=== PATIENT | male | born 1965 | race Caucasian/White ===

== ENCOUNTER 2024-12-27 10:47 | Emergency (ER) | payer OTHER, SELFPAY ==
[2024-12-27 10:50] VITALS: BP 127/62; PULSE 50; RESP 16; TEMP 36.2; O2SAT 98; BMI 29.5
--- NOTE | 2024-12-27 12:49 | ED_ITS ---
HPI - Back Pain/Injury General Chief Complaint: Back Pain/Injury Stated Complaint: Lower Back Pain Time Seen by Provider: 12/27/24 14:21 History of Present Illness ED Provider: Susan GREER Narrative: The patient is a 59-year-old male who is here for evaluation of low back pain that radiates down the right leg. He says that he has been seen at the emergency room at [facility] in the last few months for the same pain and he describes what was probably a CAT scan to evaluate for this pain. He also says that 1-2 years ago he had similar pain and had physical therapy that he did not feel was helpful. He says he has been taking ibuprofen for the pain but he feels this upsets his stomach. No bowel or bladder control problems. No fever, sweats, chills. No nausea or vomiting. Related Data Previous Rx's ?Medication ?Instructions ?Recorded acetaminophen 500 mg capsule 1,000 mg (2 x 500 mg) PO Q8H PRN 12/27/24 fever or pain #14 caps cyclobenzaprine 10 mg tablet 10 mg PO TID PRN muscle spasm #14 12/27/24 tabs Allergies Allergy/AdvReac Type Severity Reaction Status Date / Time No Known Allergies Allergy Verified 12/27/24 10:51 [No Known Allergies*] PMFSH Social History Social History Alcohol intake: never Smoked in Last 30 Days: No Use of substances other than those prescribed or required for medical reasons: No Advance Directives: No Advance Directives Information Provided: Yes Physical Exam 2 Vital Signs: Vital Signs: Last Vital Signs Temp 97.7 F 12/27/24 15:33 Pulse 46 L 12/27/24 15:33 Resp 14 12/27/24 15:33 BP 142/74 H 12/27/24 15:33 Pulse Ox 98 12/27/24 15:33 O2 Del Method Room Air 12/27/24 15:33 BMI result Body Mass Index 29.5 Const: Other: The patient is a 59-year-old male. He is very well-groomed and looks as if he is ordinarily in good health. He did not appear acutely ill while simply sitting but seemed to have discomfort when he moves around. HEENT: Other: Face is symmetrical, mucous membranes moist Eyes: General: appearance normal, both eyes and all related structures Neck: Neck: Yes normal visual inspection, Yes full ROM, Yes no lymphadenopathy and Yes no JVD Resp: Effort & Inspection: normal respiratory effort Auscultation: clear to auscultation bilaterally Cardio: Rate: bradycardic Rhythm: regular rhythm Heart sounds: S1 normal heart sound present and S2 normal heart sound present GI: Other: The abdomen is soft and nontender Skin: Other: The skin is dry and unremarkable Neuro: Other: The patient is awake and alert with a normal mental status. Cranial nerves are intact. He has intact strength and sensation in his extremities although he seems to have some discomfort with moving around and he walks with a slight limp. There was no footdrop. 2+ reflexes at the knees and ankles. Extrem: Other: No peripheral edema, no calf swelling or tenderness Course Course Course Narrative: This is a Rapid Medical Exam performed in triage by Lisbet Ceja PA-C. Full HPI, ROS and PE to be performed by primary ED provider. 59-year-old O[place]i speaking male presenting to the ED c/o right-sided low back pain radiating down RLE and to right suprapubic region x few weeks. Admits to some dysuria and RLE paresthesias. Denies hematuria, incontinence, retention, injury/trauma or fall PE: bradycardic HR 43, abd soft nontender, No midline ttp Plan: EKG, labs, UA Medications Administered Discontinued Medications Generic Name Dose Route Start Last Admin Trade Name Freq PRN Reason Stop Dose Admin Ketorolac Tromethamine 30 mg 12/27/24 14:48 12/27/24 15:00 Ketorolac Tromethamine 30 Mg/Ml Vial IM 12/27/24 14:49 30 mg ONCE ONE Administration Medical Decision Making Medical Decision Making [facility] Narrative: The patient is a 59-year-old male who comes to the emergency room for evaluation of right lower back pain radiating down his right leg. The pain radiates down the back of his right leg to about the mid calf level. His description of the symptoms seems suggestive of sciatica. He has no bowel or bladder complaints. No fever, sweats, chills. He has no footdrop. I was somewhat surprised when the patient told me that he has been seen at the emergency room at [facility] a couple of times in the last few months for the same syndrome. He described having what I believe was a CAT scan for evaluation of this pain at [facility]. As I believe he has likely had imaging done at [facility] recently I do not think any plain films are necessary here. I do not see any indication for an MRI or other advanced imaging. This seems like sciatica. I was also somewhat surprised that the patient told me that he has been referred to physical therapy in the more remote past for similar pain. He says that he did not feel that physical therapy was helpful. In any event I think the patient may be discharged. He says he can not take ibuprofen because he has taken a lot of it and it upsets his stomach. He will therefore be prescribed acetaminophen and cyclobenzaprine. As an incidental finding the patient was bradycardic in the emergency room. His EKG showed bradycardia but was otherwise unremarkable. He is hemodynamically stable. Blood pressure is excellent. He seems to be asymptomatic with a first- degree of bradycardia. I think any further evaluation of his bradycardia may be deferred to his primary care doctor. Ultimately the patient was given an injection of ketorolac has a 1 time dose here in the emergency room. He is discharged to follow up with his PCP and also possibly with [facility]. Lab Data 12/27/24 13:24 12/27/24 13:24 Labs: Lab Results 12/27/24 12/27/24 Range/Units 13:24 13:31 WBC 5.7 (4.8-10.8) X10*3/uL RBC 5.24 (4.60-5.80) X10*6/uL Hgb 14.9 (14.0-18.0) g/dl Hct 45.8 (42.0-52.0) % MCV 87.4 (80.0-98.0) fL MCH 28.4 (27.0-33.0) pg MCHC 32.5 (31.0-36.0) g/dl RDW 12.8 (11.0-16.0) % Plt Count 119 L (160-400) X10*3/uL MPV 11.3 (9.4-12.4) fL Immature Gran % (Auto) 0.2 (0.0-0.4) % Neut % (Auto) 43.7 L (45-73) % Lymph % (Auto) 45.0 H (20-40) % [place] % (Auto) 9.1 (2-11) % Eos % (Auto) 1.7 (0-4) % Baso % (Auto) 0.3 (0-2) % Lymph # (Auto) 2.6 (1.2-4.9) X10*3/uL [place] # (Auto) 0.5 (0.1-1.2) X10*3/uL Eos # (Auto) 0.1 (0.0-0.4) X10*3/uL Baso # (Auto) 0.0 (0.0-0.2) X10*3/uL Abs Immat Gran (auto) 0.01 (0.00-0.03) X10*3/uL Absolute Neuts (auto) 2.5 (2.0-8.3) x10*3/uL Absolute Nucleated RBC 0.000 (0.0-0.012) X10*3/uL Nucleated RBC % (auto) 0.0 (0.0-0.2) /100WBC Sodium 142 (135-145) mmol/L Potassium 4.4 (3.3-5.1) mmol/L Chloride 109 H (96-108) mmol/L Carbon Dioxide 27 (22-29) mmol/L Anion Gap 10 L (12-20) BUN 15 (9-16) mg/dL Creatinine 0.90 (0.5-1.4) mg/dL Estim Creat Clear Calc 92.8 Estimated GFR > 60 Random Glucose 91 (60-115) mg/dL Calcium 9.3 (8.4-10.2) mg/dL Magnesium 2.2 (1.6-2.6) mg/dL Total Bilirubin 0.8 (0.0-1.0) mg/dL Direct Bilirubin 0.2 (0.0-0.5) mg/dL AST 38 H (5-37) U/L ALT 49 H (0-40) U/L Alkaline Phosphatase 91 (39-117) U/L Total Protein 7.1 (6.5-8.0) g/dL Albumin 4.1 (3.5-5.0) g/dL Lipase 17 (8-78) U/L Urine Color Yellow Urine Appearance Clear Urine pH 6.0 (5.0-9.0) Ur Specific [place] 1.015 (1.005-1.025) Urine Protein Negative (Neg-Trace) mg/dL Urine Glucose (UA) Negative (Negative) mg/dL Urine Ketones Negative (Negative) mg/dL Urine Blood Negative (Negative) Urine Nitrite Negative (Negative) Ur Leukocyte Esterase Negative (Negative) Discharge Plan Discharge Clinical Impression: Acute low back pain with right-sided sciatica, Bradycardia Patient Disposition: Home, Self-Care Instructions: Sciatica (ED), Bradycardia (ED) Additional Instructions: You seemed to have a condition we call sciatica. This is caused by irritation of a large nerve (the sciatic nerve) usually by a disc between the vertebra in the lower back. I have sent a prescription for acetaminophen which you may use as prescribed as needed for pain. I have also sent a prescription for a muscle relaxant called cyclobenzaprine which you may use as well. Cyclobenzaprine can be sedating so you should not use this medication if you need to be alert. You should not use this medication if you will be driving. I think it would be good for you to consider trying physical therapy again. Please contact your regular doctor for a follow up appointment to discuss this further. Additionally it might be good for you to see a doctor at the [facility] practice. This is a medical office which specializes in low back problems. You may need a referral from your regular doctor. As an incidental finding you seemed to have a low heart rate. This is not necessarily bad. In fact it may be a sign of health. However this is something for which you should also follow up with your regular doctor. Return to the emergency room if significantly worse. Prescriptions: New cyclobenzaprine 10 mg tablet 10 mg PO TID PRN (Reason: muscle spasm) Qty: 14 0RF acetaminophen 500 mg capsule 1,000 mg PO Q8H PRN (Reason: fever or pain) Qty: 14 0RF Referrals: [facility] [Provider Group] (right sided sciatica) Jamie Cruz III, MD [Primary Care Provider] - Stand Alone Forms: Work/School Release Interventions: ED Discharge Assessment Last Done: 12/27/24 15:33 Discharge Date/Time: 12/27/24 15:34 Print Language: Omani
[2024-12-27 12:50] VITALS: BP 126/72; PULSE 43; RESP 16; TEMP 36.1; O2SAT 97
--- NOTE | 2024-12-27 12:51 | ECG_ITS ---
Test Reason : claudia Blood Pressure : */* mmHG Vent. Rate : 41 BPM Atrial Rate : 41 BPM P-R Int : 148 ms QRS Dur : 84 ms QT Int : 452 ms P-R-T Axes : 33 -6 3 degrees QTcB Int : 372 ms Marked sinus bradycardia Abnormal ECG No previous ECGs available Referred By: Lisbet Ceja Electronically Signed By: NANDO FRANKLIN
[2024-12-27 13:34] LABS: MANUAL DIFF FLAG NO
[2024-12-27 13:39] LABS: Appearance Urine Clear; Color Urine Yellow; Glucose Urine UA Negative (Negative); Leukocyte Esterase Urine Negative (Negative); Nitrite Urine Negative (Negative); Specific Gravity - Urine 1.015 (1.005-1.025); Urine Blood Negative (Negative); Urine Ketones Negative (Negative); Urine Protein Negative (Neg-Trace)
[2024-12-27 13:50] LABS: Alanine Aminotransferase 49 U/L (0-40); Albumin Level 4.1 g/dL (3.5-5.0); Alkaline Phosphatase 91 U/L (39-117); Anion Gap 10 (12-20); Aspartate Amino Transferase 38 U/L (5-37); Bilirubin Direct 0.2 mg/dL (0.0-0.5); Bilirubin Total 0.8 mg/dL (0.0-1.0); Blood Urea Nitrogen 15 mg/dL (9-16); Calcium 9.3 mg/dL (8.4-10.2); Carbon Dioxide 27 mmol/L (22-29); Chloride 109 mmol/L (96-108); Creatinine Clr Calc Pharmacy 92.8; Estimated Glomerular Filt Rate > 60; Glucose Random 91 mg/dL (60-115); Lipase 17 U/L (8-78); Magnesium 2.2 mg/dL (1.6-2.6); Potassium 4.4 mmol/L (3.3-5.1); Sodium 142 mmol/L (135-145); Total Protein 7.1 g/dL (6.5-8.0)
[2024-12-27 15:00] VITALS: BP 142/74; PULSE 46; RESP 14; TEMP 36.5; O2SAT 98
[2024-12-27] MEDS: Ketorolac Tromethamine 30 MG/ML VIAL IM (15:00)
[2024-12-27 15:10] LABS: Basophils Percent Auto 0.3 % (0-2); Eosinophils Absolute Auto 0.1 X10*3/uL (0.0-0.4); Eosinophils Percent Auto 1.7 % (0-4); Hematocrit 45.8 % (42.0-52.0); Hemoglobin 14.9 g/dl (14.0-18.0); Imm Gran Abs Auto 0.01 X10*3/uL (0.00-0.03); Imm Gran Pct Auto 0.2 % (0.0-0.4); Lymphocytes Absolute Auto 2.6 X10*3/uL (1.2-4.9); Mean Corpuscular HGB Conc 32.5 g/dl (31.0-36.0); Mean Corpuscular Hemoglobin 28.4 pg (27.0-33.0); Mean Corpuscular Volume 87.4 fL (80.0-98.0); Mean Platelet Volume 11.3 fL (9.4-12.4); Monocytes Absolute Auto 0.5 X10*3/uL (0.1-1.2); Monocytes Percent Auto 9.1 % (2-11); Neutrophils Absolute Auto 2.5 x10*3/uL (2.0-8.3); Neutrophils Percent Auto 43.7 % (45-73); Platelet Count 119 X10*3/uL (160-400); Red Blood Count 5.24 X10*6/uL (4.60-5.80); Red Cell Distribution Width 12.8 % (11.0-16.0); White Blood Count 5.7 X10*3/uL (4.8-10.8)
[2024-12-27 15:33] VITALS: BP 142/74; PULSE 46; RESP 14; TEMP 36.5; O2SAT 98
--- OUTSIDE RECORDS SUMMARY | 2024-12-27 17:42 | XMS_ITS | Clinical Summary ---
Author Organization [facility] [address] [place] [address] [address] [place] [address] Phone Care Team Providers Care Filer Repairer Name Role Phone Jamie Cruz MD Primary Care Provider [phone] Allergies No known active allergies Medications tamsulosin (FLOMAX) 0.4 mg 24 hr capsule Take 1 Capsule by mouth daily. Take 30 mins after same meal every day. 01/07/20 24 Active diclofenac (VOLTAREN) 1 % topical gel Apply 1 g topically 4 times daily as needed (pain). 01/07/20 24 Active gabapentin (NEURONTIN) 300 mg capsule Start with one cap po QHS x 3 days, increase to one cap po BID x 3 days, then increase to one cap po TID 06/30/20 23 Active tiZANidine (ZANAFLEX) 4 mg tablet Take 1 Tablet by mouth every 6 hours as needed for Muscle spasms for up to 10 days. 06/30/20 23 Active diclofenac (VOLTAREN) 1 % topical gel APPLY 1 GRAM TOPICALLY 4 (FOUR) TIMES A DAY. 100 g 09/13/19 25 Active lansoprazole (PREVACID) [address] capsule TAKE 1 CAPSULE BY MOUTH DAILY FOR 360 DAYS. 90 capsule 1 11/23/19 25 Active levothyroxine (SYNTHROID, LEVOTHROID) 50 mcg tablet TAKE 1 TABLET BY MOUTH DAILY. TAKE 2 TABS ON SUNDAYS 104 tablet 1 11/30/19 25 Active levothyroxine (SYNTHROID, LEVOTHROID) 50 mcg tablet TAKE 1 TABLET BY MOUTH DAILY. TAKE 2 TABS ON Sundays02/28/20 025 Discontinued Active Problems Problem Noted Date Diagnosed Date Hypothyroid 06/06/2024 BPH (benign prostatic hyperplasia) 06/06/2024 Overview (06/06/2024): Follows with [facility] yearly basis Diabetes mellitus type II, c ontrolled ([facility] V24, [facility] V28) 06/06/2024 Asymptomatic microscopic hematuria 03/29/2020 GERD (gastroesophageal reflux disease) 0 Encounters Date Type Department Care Team Description 10/17/2024 2:30 PM EST Consult Orthopedic Surgery - [address] [place] [address] Hermelinda Seo PA Bursitis of right shoulder (Primary Dx) 10/02/2024 3:00 PM EST Consult Endocrinology [address] [phone] Jake Fu MD Low testosterone in male from Last 3 Months Immunizations Name Administration Dates Next Due Influenza Quadravalent, MDCK , 0.5ml, preservative free (Flucelvax) 6mo and older 10/13/2018 Pfizer SARS-CoV-2 COVID-19, mRNA, LNP-S, preservative free 09/08/2021 Tdap Tetanus diptheria acell ular pertussis (Boostrix; Adacel) 7yo and older 10/13/2018 Surgical History Surgery Date Site/Laterality Comments CHOLECYSTECTOMY PROCEDURE: HISTORICAL CHOLECYSTECTOMY; COMMENT: 2011 CARPAL TUNNEL RELEASE Right PROCEDURE: TX NEUROPLASTY &/TRANSPOS MEDIAN NRV CARPAL TUNNE Medical History Medical History Date Comments Hypothyroid DX:Hypothyroid BPH (benign prostatic hyperplasia) DX:BPH (benign prostatic hyperplasia); COMMENT: pt states 50 grams via his urologist in [facility] Prediabetes DX:Prediabetes History of tobacco abuse DX:Hist ory of tobacco abuse Family History Medical History Relation Name Comments Other cancer Brother throat Prostate cancer Father Coronary artery disease Mother Diabetes Mother Hypertension Mother Relation Name Status Comments Brother Daughter 1 Alive Daughter 2 Alive Father Mother Alive Sister Alive Son 1 Alive Son 2 Alive Social History Tobacco Use Types Packs/Day Years Used Date Smoking Tobacco: Former Cigarettes Q uit: 02/12/2013 Smokeless Tobacco: Never Tobacco Cessation:Counseling Given: Not Answered Alcohol Use Standard Drinks/Week Comments Yes 0 (1 standard drink = 0.6 oz pur e alcohol) Sex and Gender Information Value Date Recorded Sex Assigned at Not on file Legal Sex Male 3:32 PM EST Gender Identity Not on file Sexual Orientation Not on file Obstetrics History Last Filed Vital Signs Vital Sign Reading Time Taken Comments Blood Pressure 129/80 10/02/2024 3:11 PM EST Pulse 69 10/02/2024 3:11 PM EST Temperature 36.1 ??C (97 ??F) 10/02/2024 3:11 PM EST Respiratory Rate 18 09/10/2024 6:23 AM EST Oxygen Saturation 92% 10/02/2024 3:11 PM EST Inhaled Oxygen Concentration - - Weight 90.7 kg (200 lb) 10/17/2024 2:41 PM EST Height 172.7 cm (5' 8 ) 10/17/2024 2:41 PM EST Body Mass Index 30.41 10/17/2024 2:41 PM EST Plan of Treatment Upcoming Encounters Date Type Department Care Team (Late st Contact Info) Description 01/10/2025 9:30 AM EDT Office Visit Adult Medicine [address] [phone] Josseline Gillespie PA [address] [place] [phone] Health Maintenance Due Date Last Done Comments Diabetes: Annual Foot Exam 1973 Pneumococcal Vaccine: 50+ Years (1 of 2 - PCV) 1982 Pneumococcal Vaccine: Pediatrics (0 to 5 Years) and At-Risk Patients (6 to 64 Years) (1 of 2 - PCV) 1982 HIV Screening 08/15/2022 Social Influencers of Health Screening 08/15/2022 Zoster Vaccines (2 of 2) 03/08/2024 01/12/2024 COVID-19 Vaccine (2023-2 5 season) 2024 09/08/2021, 01/04/2021, 12/07/2020 Depression Screening 01/06/2025 01/07/2024 Diabetes: Blood Sugar Contro l Test (HGBA1C) 01/10/2025 07/13/2024, 01/07/2024, 01/07/2024 Diabetes: Annual Retina Eye Exam 01/17/2025 01/18/2024 Influenza Vaccine (Season Ended) 2025 05/17/2020, 10/13/2018 Diabetes: Annual Urine Albumin-Creatinine Ratio (uACR) 07/13/2025 07/13/2024, 03/01/2023 Diabetes: Annual GFR (Glomerular Filtration Rate) 07/13/2025 07/13/2024, 01/07/2024, 01/07/2024 Colorectal Cancer Screening: Colonoscopy 04/29/2027 04/29/2022 DTaP,Tdap,and Td Vaccines (2 - Td or Tdap) 10/13/2028 10/13/2018 Cholesterol Screening (Lipid Panel) 07/13/2029 07/13/2024, 01/07/2024, 01/07/2024 RSV Immunization Adult Patients (1 - 1-dose 75+ series) 2038 Hepatitis C Screening Completed 10/13/2018 HIB Vaccines Aged Out No longer eligi ble based on patient's age to complete this topic HPV Vaccines Aged Out No longer eligi ble based on patient's age to complete this topic Hepatitis A Vaccines Aged Out No long er eligible based on patient's age to complete this topic Hepatitis B Vaccines Aged Out No long er eligible based on patient's age to complete this topic IPV Vaccines Aged Out No longer eligi ble based on patient's age to complete this topic MMR Vaccines Aged Out No longer eligi ble based on patient's age to complete this topic Meningococcal ACWY Vaccine Aged Out N o longer eligible based on patient's age to complete this topic Meningococcal B Vaccine Aged Out No l onger eligible based on patient's age to complete this topic RSV Immunization Patients Under 20 months Aged Out No longer eligible b ased on patient's age to complete this topic Varicella Vaccines Aged Out No longer eligible based on patient's age to complete this topic Procedures Procedure Name Priority Date/Time Associated Diagnosis Comments TX ARTHROCENTESIS/ASPIRAT ION/INJECTION MAJOR JOINT/BURSA W/O U/S GUIDANCE Routine 10/17/2024 2:30 PM EST Bursitis of right shoulder MICROALBUMIN CREATININE URINE RATIO Routine 07/13/2024 10:44 AM EST Controlled type 2 diabetes mellitus without complication, without long-term current use of insulin (CMS/HCC V24, CMS/HCC V28) COMPREHENSIVE METABOLIC PANEL Routine 07/13/2024 10:44 AM EST Controlled type 2 diabetes mellitus without complication, without long-term current use of insulin (CMS/HCC V24, CMS/HCC V28) HEMOGLOBIN A1C Routine 07/13/2024 10:44 AM EST Controlled type 2 diabetes mellitus without complication, without long-term current use of insulin (CMS/HCC V24, CMS/HCC V28) LIPID PANEL WITH REFLEX TO DIRECT LDL Routine 07/13/2024 10:44 AM EST Fatigue Decreased libido Muscle weakness (generalized) Diabetes mellitus type II, controlled (CMS/HCC V24, CMS/HCC V28) DIABETES EYE EXAM Routine 01/18/2024 DEPRESSION SCREENING Routine 01/07/2024 COLONOSCOPY Routine 04/29/2022 HEPATITIS C SCREENING Routine 10/13/2018 from Last 3 Months or Most Recently Relevant to Health Maintenance Results * TX ARTHROCENTESIS/ASPIRATION/INJECTION MAJOR JOINT/BURSA W/O U/S GUIDANCE (10/17/2024 2:30 PM EST) Narrative Hermelinda Seo PA - 10/17/2024 2:30 PM EST HELEN Lew ? 10/17/2024 ??4:42 PM L Inj/Asp: R subacromial bursa Indications: pain Details: 25 G needle, anterolateral approach Medications: 3 mL lidocaine 1 %; 10 mg triamcinolone acetonide 40 mg/mL Informed Consent: ??Laterality: ??Right ??Relevant images/test results available and reviewed: yes ?Health status cleared: ??Yes ??Procedure/treatment, purpose, treatment alternatives, risks/potential complications and benefits explained: yes ?Risk/complications/benefits details: ??Risks of infection, thinning of the skin and temporary skin discoloration discussed. ??Discussed risks of temporary increased pain after injection and swelling and mild redness at injection site for couple days. ??Explained occasionally cortisone injection can cause facial flushing temporarily. ??Benefits pain management. ??For postop injection pain ice, Tylenol and/or NSAIDs if patient can take ??Patient questions answered: yes ?Patient agrees, verbalizes understanding, and wants to proceed: yes ?Consent given by: ??Patient ??Informed consent discussion completed by Physician/ANDRE with patient: ?? Verbal ??Pre-procedure timeout performed: yes ?? us Hermelinda [facility]/BEDSIDE ORDERABLES Final Result * (ABNORMAL) Lipid panel with reflex to direct LDL (07/13/2024 10:44 AM EST) Cholesterol 154 0 - 200 mg/dL LAB CHEMISTRY METHOD 07/13/2024 2:45 PM [facility] Triglycerides 264(H) 0 - 150 mg/dL LAB CHEMISTRY METHOD 07/13/2024 2:45 PM [facility] HDL 35(L) >=40 mg/dL LAB CHEMISTRY METHOD 07/13/2024 2:45 PM [facility] LDL Calculated 66 0 - 100 mg/dL LAB CHEMISTRY METHOD 07/13/2024 2:45 PM [facility] VLDL Cholesterol Alex 52.8 mg/dL LAB CHEMISTRY METHOD 07/13/2024 2:45 PM [facility] Non HDL Chol. (LDL+VLDL) 119 <145 mg/dL LAB CHEMISTRY METHOD 07/13/2024 2:45 PM [facility] Chol/HDL Ratio 4.4 0.0 - 4.4 LAB CHEMISTRY METHOD 07/13/2024 2:45 PM EST [facility] Blood Venous blood specimen / Unknown Venipuncture / Unknown 07/13/2024 10:44 AM EST 07/13/2024 10:44 AM EST us Jamie Cruz MD LAB BLOOD ORDERABLES Final Resu lt [facility] [address] [place] [address], [place] [phone] * Microalbumin creatinine urine ratio (07/13/2024 10:44 AM EST) Creatinine, Urine 124.0 mg/dL LAB CHEMISTRY METHOD 07/13/2024 2:26 PM EST [facility] Microalb, Ur 6.4 0.0 - 29.0 mg/L LAB CHEMISTRY METHOD 07/13/2024 2:26 PM EST [facility] Microalb/Creat Ratio 5 <30 mg/g creat LAB CHEMISTRY METHOD 07/13/2024 2:26 PM EST [facility] Urine Urine specimen obtained by clean catch procedure / Unknown Non-blood Collection / Unknown 07/13/2024 10:44 AM EST 07/13/2024 10:44 AM EST us Jamie Cruz MD LAB URINE ORDERABLES Final Resu lt [facility] [address] [place] [address], [place] [phone] * (ABNORMAL) Hemoglobin A1c (07/13/2024 10:44 AM EST) Hemoglobin A1C 6.7(H) <6.5 % LAB CHEMISTRY METHOD 07/13/2024 6:41 PM EST [facility] Mean Bld Glu Estim. 146 mg/dL LAB CHEMISTRY METHOD 07/13/2024 6:41 PM EST [facility] Blood Venous blood specimen / Unknown Venipuncture / Unknown 07/13/2024 10:44 AM EST 07/13/2024 10:44 AM EST us Jamie Cruz MD LAB BLOOD ORDERABLES Final Resu lt [facility] [address] [place] [address], * (ABNORMAL) Comprehensive metabolic panel (07/13/2024 10:44 AM EST) Sodium 141 133 - 145 mmol/L LAB CHEMISTRY METHOD 07/13/2024 2:45 PM [facility] Potassium 3.9 3.5 - 5.5 mmol/L LAB CHEMISTRY METHOD 07/13/2024 2:45 PM [facility] Chloride 108 96 - 110 mmol/L LAB CHEMISTRY METHOD 07/13/2024 2:45 PM [facility] CO2 29 21 - 32 mmol/L LAB CHEMISTRY METHOD 07/13/2024 2:45 PM [facility] Anion Gap 4 3 - 11 LAB CHEMISTRY METHOD 07/13/2024 2:45 PM [facility] Glucose 152(H) 70 - 100 mg/dL LAB CHEMISTRY METHOD 07/13/2024 2:45 PM [facility] BUN 16 5 - 25 mg/dL LAB CHEMISTRY METHOD 07/13/2024 2:45 PM [facility] Creatinine 1.13 0.70 - 1.30 mg/dL LAB CHEMISTRY METHOD 07/13/2024 2:45 PM [facility] eGFR 74 >=60 mL/min/1. 73m2 LAB CHEMISTRY METHOD 07/13/2024 2:45 PM [facility] Comment:Calculation based on the??Chronic Kidney Disease Epidemiology Collaboration (CKD-EPI) equation refit??without adjustment for race. BUN/Creatinine Ratio 14.2 LAB CHEMISTRY METHOD 07/13/2024 2:45 PM [facility] Calcium 9.3 8.5 - 10.5 mg/dL LAB CHEMISTRY METHOD 07/13/2024 2:45 PM [facility] AST (SGOT) 55(H) 10 - 42 unit/L LAB CHEMISTRY METHOD 07/13/2024 2:45 PM [facility] ALT (SGPT) 96(H) 10 - 60 unit/L LAB CHEMISTRY METHOD 07/13/2024 2:45 PM [facility] Alkaline Phosphatase 100 42 - 121 unit/L LAB CHEMISTRY METHOD 07/13/2024 2:45 PM [facility] Total Protein 7.2 6.0 - 8.0 g/dL LAB CHEMISTRY METHOD 07/13/2024 2:45 PM [facility] Albumin 3.9 3.2 - 5.0 g/dL LAB CHEMISTRY METHOD 07/13/2024 2:45 PM [facility] Total Bilirubin 0.7 0.0 - 1.4 mg/dL LAB CHEMISTRY METHOD 07/13/2024 2:45 PM [facility] Blood Venous blood specimen / Unknown Venipuncture / Unknown 07/13/2024 10:44 AM EST 07/13/2024 10:44 AM EST Jamie Cruz MD LAB BLOOD ORDERABLES Final Resu lt [facility] [address] [place] [address], * Diabetes Eye Exam (01/18/2024) Pathologist [facility] Diabetes: Annual Retina Eye Exam abstracted Historical Provider HEALTH MAINTENANCE Final Result * Depression Screening (01/07/2024) Pathologist [facility] Depression Screening no interpretation , abstracted Historical Provider HEALTH MAINTENANCE Final Result * Colonoscopy (04/29/2022) Colonoscopy no interpretation , abstracted Anatomical Region Laterality Modality Other Historical Provider HEALTH MAINTENANCE Final Result * Hepatitis C Screening (10/13/2018) Hepatitis C Screening abstracted Historical Provider HEALTH MAINTENANCE Final Result from Last 3 Months or Most Recently Relevant to Health Maintenance Insurance [facility] [employer] Care Teams Filer Repairer Relationship Specialty Start Date End Date Jamie Cruz MD [address] [place] [phone] PCP - General Internal Medicine 07/11/24
== END 2024-12-27 15:34 | disposition home or self-care (01) ==
PROVIDERS: Physician Assistant; Emergency Provider Emergency Medicine; PCP Internal Medicine
DX: M54.40 Lumbago with sciatica, unspecified side (principal); R00.1 Bradycardia, unspecified
CPT/HCPCS: 36415; 80048; 80076; 81003; 83690; 83735; 85025; 93005; 96372; 99284; 99285; J1885

== ENCOUNTER → 2024-12-27 12:51 | Outpatient (BNV) | payer OTHER, SELFPAY | PROVIDERS: Emergency Provider Emergency Medicine; PCP Internal Medicine; Visit Provider Internal Medicine | DX: R00.1 Bradycardia, unspecified (principal) | CPT/HCPCS: 93010 ==